=== PATIENT | male | born 1985 | race African-American/Black ===

== ENCOUNTER 2018-09-01 12:08 | Emergency (ER) | payer OTHER ==
[2018-09-01] MEDS: DERMABOND TOPICAL SKIN ADHESIVE TOP (13:45)
== END 2018-09-01 14:05 | disposition home or self-care (01) ==
LOC: M ED 12:08
DX: S01.411A Laceration without foreign body of right cheek and temporomandibular area, initial encounter (principal); W22.8XXA Striking against or struck by other objects, initial encounter; Y92.138 Other place on military base as the place of occurrence of the external cause; Y99.1 Military activity
CPT/HCPCS: 12013